=== PATIENT | male | born 1950 | race Caucasian/White ===

== ENCOUNTER 2021-10-31 12:04 | Inpatient (IN) | payer MEDICARE, OTHER ==
[~2021-10-31] VITALS: Ht 185.4 cm; Wt 85.7 kg
[2021-10-31] MEDS ORDERED: RAPAMUNE1 MG PO (12:47)
[2021-10-31] MEDS ORDERED: VITAMIN B-121000 MC1 PO (12:47)
[2021-10-31] MEDS ORDERED: BARACLUDE1 MG PO (12:47)
[2021-10-31] MEDS ORDERED: MONTELUKAST SOD10 MG PO (12:47)
[2021-10-31] MEDS ORDERED: METOPROLOL SUCC50 MG PO (12:47)
[2021-10-31] MEDS ORDERED: ALLEGRA ALLERGY60 MG PO (12:47)
[2021-10-31] MEDS ORDERED: OXYBUTYNIN CHLOR5 MG PO (12:47)
[2021-10-31] MEDS ORDERED: VITAMIN D325 MCG PO (12:47)
[2021-10-31] MEDS ORDERED: FLONASE ALLERG9.9 ML INH (12:47)
[2021-10-31] MEDS ORDERED: MULTIVITAMIN1 EACH PO (12:47)
[2021-10-31] MEDS ORDERED: ONDANSETRON HCL INJ 2MG/ML 2ML 2 MG/ML VIAL IV STA (12:59)
[2021-10-31] MEDS ORDERED: KETOROLAC TROMETHAMINE 30 MG/ML VIAL IV STA (12:59)
[2021-10-31] MEDS ORDERED: SODIUM CHLORIDE 0.9% 1000ML 1,000 ML IV SCH ×2 (13:00→14:30)
[2021-10-31] MEDS ORDERED: Morphine 4mg INJECTION 4 MG/ML INJ IV ONE (13:15)
[2021-10-31] MEDS ORDERED: KETOROLAC TROMETHAMINE 30 MG/ML VIAL ONE (13:20)
[2021-10-31] MEDS ORDERED: Morphine 4mg INJECTION 4 MG/ML INJ ONE (13:21)
[2021-10-31] MEDS ORDERED: PROMETHAZINE 12.5MG/ NACL 0.9% 12.5 MG/50 ML BAG IV ONE (14:45)
[2021-10-31] MEDS ORDERED: PROMETHAZINE HCL (IM) 25 MG/ML VIAL IM ONE (14:51)
[2021-10-31] MEDS ORDERED: CEFTRIAXONE 1 GM VIAL ONE (14:51)
[2021-10-31] MEDS ORDERED: SODIUM CHLORIDE 0.9% 1000ML 1,000 ML ONE (14:51)
[2021-10-31] MEDS ORDERED: Morphine 4mg INJECTION 4 MG/ML INJ IV PRN (15:45)
[2021-10-31 17:42] VITALS: BP 118/67
[2021-10-31 18:05] VITALS: BP 118/67
[2021-10-31 18:21] VITALS: BP 118/67
[2021-10-31] MEDS: SODIUM CHLORIDE 0.9% 1000ML 1,000 ML IV SCH (18:43)
[2021-10-31 20:00] VITALS: BP 112/67
[2021-10-31] MEDS: TAMSULOSIN HCL 0.4 MG CAP PO SCH (20:47)
[2021-10-31 21:16] VITALS: BP 112/67
[2021-11-01] VITALS (7 sets, daily range): BP systolic 115–134; BP diastolic 60–73
[2021-11-01] MEDS ORDERED: DOCUSATE SODIUM 100 MG CAP PO PRN (00:15)
[2021-11-01] MEDS: SODIUM CHLORIDE 0.9% 1000ML 1,000 ML IV SCH ×3 (01:38→16:43)
[2021-11-01 06:28] LABS: BASOPHILS % 0.3 % (0.0-1.0); EOSINOPHILS # (AUTO) 0.2 (0.0-0.4); EOSINOPHILS % 3.6 % (0.0-6.0); HEMATOCRIT 39.1 % (38.2-49.6); HEMOGLOBIN 12.2 g/dL (14.0-18.0); LYMPHOCYTES # (AUTO) 1.3 (1.0-3.2); LYMPHOCYTES % 21.5 % (18.0-39.1); MEAN CORPUSCULAR HEMOGLOBIN 26.8 pg (28-32); MEAN CORPUSCULAR HGB CONC 31.2 g/dL (31-35); MEAN CORPUSCULAR VOLUME 85.7 fL (81-99); MONOCYTES # (AUTO) 0.8 (0.2-0.8); MONOCYTES % 12.5 % (4.4-11.3); NEUTROPHILS # (AUTO) 3.8 (2.1-6.9); NEUTROPHILS % 61.6 % (38.7-80.0); PLATELET COUNT 127 x10e3/uL (140-360); RED BLOOD COUNT 4.56 x10e6/uL (4.3-5.7); RED CELL DISTRIBUTION WIDTH 15.2 % (11.7-14.4)
[2021-11-01 07:15] LABS: ALBUMIN 2.5 g/dL (3.5-5.0); ANION GAP 11.4 mmol/L (8-16); CALCIUM 8.1 mg/dL (8.4-10.2); CREATININE, SERUM 1.52 mg/dL (0.72-1.25); POTASSIUM 4.4 mmol/L (3.5-5.1)
[2021-11-01] MEDS ORDERED: FAMOTIDINE 20 MG TAB PO ONE (07:30)
[2021-11-01] MEDS: SIROLIMUS 1 MG TABLET PO SCH (09:00)
[2021-11-01] MEDS: CEFTRIAXONE 2 GM in SODIUM CHLORIDE 0.9% 100 ML IV SCH (09:54)
[2021-11-01] MEDS: FAMOTIDINE 20 MG TAB PO SCH (16:44)
[2021-11-01] MEDS: ONDANSETRON HCL INJ 2MG/ML 2ML 2 MG/ML VIAL IV PRN ×2 (20:04→23:21)
[2021-11-01] MEDS: TAMSULOSIN HCL 0.4 MG CAP PO SCH (20:07)
[2021-11-01] MEDS: HYDROMORPHONE 1MG/1ML INJ IV PRN (21:07)
[2021-11-01] MEDS ORDERED: ONDANSETRON HCL INJ 2MG/ML 2ML 2 MG/ML VIAL IV PRN (23:45)
[2021-11-02] VITALS (7 sets, daily range): BP systolic 99–127; BP diastolic 50–60
[2021-11-02] MEDS: HYDROMORPHONE 1MG/1ML INJ IV PRN ×5 (00:20→21:10)
[2021-11-02] MEDS: SODIUM CHLORIDE 0.9% 1000ML 1,000 ML IV SCH ×3 (00:28→16:37)
[2021-11-02] MEDS ORDERED: PROMETHAZINE 12.5MG/ NACL 0.9% 12.5 MG/50 ML BAG IV PRN (00:30)
[2021-11-02] MEDS: PROMETHAZINE 12.5MG/ NACL 0.9% 12.5 MG/50 ML BAG IV PRN ×2 (00:52→05:53)
[2021-11-02] MEDS ORDERED: PROMETHAZINE 12.5MG/ NACL 0.9% 50 ML ONE (01:02)
[2021-11-02 06:17] LABS: BASOPHILS % 0.5 % (0.0-1.0); EOSINOPHILS # (AUTO) 0.2 (0.0-0.4); EOSINOPHILS % 3.6 % (0.0-6.0); HEMATOCRIT 34.5 % (38.2-49.6); LYMPHOCYTES # (AUTO) 1.1 (1.0-3.2); LYMPHOCYTES % 27.3 % (18.0-39.1); MEAN CORPUSCULAR HEMOGLOBIN 25.2 pg (28-32); MEAN CORPUSCULAR HGB CONC 31.3 g/dL (31-35); MEAN CORPUSCULAR VOLUME 80.6 fL (81-99); MONOCYTES # (AUTO) 0.6 (0.2-0.8); MONOCYTES % 15.1 % (4.4-11.3); NEUTROPHILS # (AUTO) 2.2 (2.1-6.9); NEUTROPHILS % 53.3 % (38.7-80.0); PLATELET COUNT 163 x10e3/uL (140-360); RED BLOOD COUNT 4.28 x10e6/uL (4.3-5.7); RED CELL DISTRIBUTION WIDTH 16.7 % (11.7-14.4)
[2021-11-02 06:31] LABS: HEMOGLOBIN 10.8 g/dL (14.0-18.0)
[2021-11-02 06:34] LABS: ANION GAP 14.3 mmol/L (8-16); CALCIUM 7.6 mg/dL (8.4-10.2); CREATININE, SERUM 0.61 mg/dL (0.72-1.25); POTASSIUM 3.3 mmol/L (3.5-5.1)
[2021-11-02] MEDS: FAMOTIDINE 20 MG TAB PO SCH ×2 (07:30→16:37)
[2021-11-02] MEDS: CEFTRIAXONE 2 GM in SODIUM CHLORIDE 0.9% 100 ML IV SCH (08:52)
[2021-11-02] MEDS ORDERED: B&O 60MG R/S 60 MG SUPP PR ONE (10:13)
[2021-11-02] MEDS ORDERED: IOPAMIDOL 610MG/1ML 300 MG/ML VIAL IV ONE (10:13)
[2021-11-02] MEDS ORDERED: PHENAZOPYRIDINE HCL 100 MG TAB PO PRN (11:00)
[2021-11-02] MEDS ORDERED: B&O 60MG R/S 60 MG SUPP PR PRN (11:00)
[2021-11-02] MEDS ORDERED: POTASSIUM CHLORIDE 20 MEQ TAB CR PO ONE (12:15)
[2021-11-02] MEDS: MONTELUKAST SODIUM 10 MG TAB PO SCH (12:25)
[2021-11-02] MEDS: SIROLIMUS 1 MG TABLET PO SCH (12:26)
[2021-11-02] MEDS: CYANOCOBALAMIN 1,000 MCG TAB PO SCH (12:26)
[2021-11-02] MEDS: METOPROLOL SUCCINATE 50 MG TAB XL PO SCH (12:26)
[2021-11-02] MEDS ORDERED: PROPOFOL IV EMULSION 10 MG/ML 20 ML VIAL ONE (13:04)
[2021-11-02] MEDS ORDERED: ONDANSETRON HCL INJ 2MG/ML 2ML 2 MG/ML VIAL ONE (13:04)
[2021-11-02] MEDS ORDERED: DEXAMETHASONE SOD PHOS INJ 4 MG/ML SDV ONE (13:04)
[2021-11-02] MEDS ORDERED: LIDOCAINE HCL 2% LOCAL INJ 5 ML SDV VIAL INJ ONE (13:04)
[2021-11-02] MEDS ORDERED: SEVOFLURANE INHAL SOLN 250 ML PEN BTL ONE (13:04)
[2021-11-02] MEDS ORDERED: POVIDONE IODINE 0.05% 0.05 % ML PO ONE (13:04)
[2021-11-02] MEDS ORDERED: MIDAZOLAM HCL 2 MG/2 ML VIAL ONE (13:15)
[2021-11-02] MEDS ORDERED: FENTANYL CITRATE/PF 100MCG/2 ML INJ ONE (13:15)
[2021-11-02] MEDS: TAMSULOSIN HCL 0.4 MG CAP PO SCH (21:03)
[2021-11-03] VITALS: BP 109/46
[2021-11-03 00:57] LABS: % IRON SATURATION 9 % (15-50); IRON 28 ug/dL (65-175); TOTAL IRON BINDING CAPACITY 308 ug/dL (261-478); TRANSFERRIN 220 mg/dL (174-364)
[2021-11-03 04:00] VITALS: BP 116/75
[2021-11-03] MEDS: SODIUM CHLORIDE 0.9% 1000ML 1,000 ML IV SCH ×3 (04:42→15:00)
[2021-11-03 06:25] LABS: BASOPHILS % 0.1 % (0.0-1.0); EOSINOPHILS % 0.6 % (0.0-6.0); HEMATOCRIT 37.2 % (38.2-49.6); HEMOGLOBIN 11.6 g/dL (14.0-18.0); LYMPHOCYTES # (AUTO) 1.3 (1.0-3.2); LYMPHOCYTES % 19.3 % (18.0-39.1); MEAN CORPUSCULAR HEMOGLOBIN 26.4 pg (28-32); MEAN CORPUSCULAR HGB CONC 31.2 g/dL (31-35); MEAN CORPUSCULAR VOLUME 84.5 fL (81-99); MONOCYTES # (AUTO) 0.8 (0.2-0.8); MONOCYTES % 12.1 % (4.4-11.3); NEUTROPHILS # (AUTO) 4.6 (2.1-6.9); NEUTROPHILS % 67.6 % (38.7-80.0); PLATELET COUNT 122 x10e3/uL (140-360); RED CELL DISTRIBUTION WIDTH 15.2 % (11.7-14.4)
[2021-11-03 07:01] LABS: ANION GAP 11.2 mmol/L (8-16); CREATININE, SERUM 1.49 mg/dL (0.72-1.25); POTASSIUM 4.2 mmol/L (3.5-5.1)
[2021-11-03 08:32] VITALS: BP 119/88
[2021-11-03 09:02] VITALS: BP 119/88
[2021-11-03] MEDS: FAMOTIDINE 20 MG TAB PO SCH ×2 (09:06→16:17)
[2021-11-03] MEDS: CYANOCOBALAMIN 1,000 MCG TAB PO SCH (09:06)
[2021-11-03] MEDS: SIROLIMUS 1 MG TABLET PO SCH (09:06)
[2021-11-03] MEDS: MONTELUKAST SODIUM 10 MG TAB PO SCH (09:06)
[2021-11-03] MEDS: METOPROLOL SUCCINATE 50 MG TAB XL PO SCH (09:08)
[2021-11-03] MEDS ORDERED: ONDANSETRON ODT4 MG PO (10:57)
[2021-11-03] MEDS ORDERED: PENICILLIN V P500 MG PO (10:58)
[2021-11-03] MEDS ORDERED: ULTRAM50 MG PO (10:59)
[2021-11-03 11:31] VITALS: BP 115/60
[2021-11-03 15:56] VITALS: BP 129/70
== END 2021-11-03 20:07 | disposition home or self-care (01) | DRG 660 ==
LOC: FSED 12:18 → ERHOLD 15:43 → MED/SURG 17:41
PROVIDERS: ADMIT Internal Medicine; ATTEND Internal Medicine
PROC: BT141ZZ Fluoroscopy of Kidneys, Ureters and Bladder using Low Osmolar Contrast (ICD-10-PCS; 2021-11-02)
PROC: 0TC08ZZ Extirpation of Matter from Right Kidney, Via Natural or Artificial Opening Endoscopic (ICD-10-PCS; principal; 2021-11-02 10:44)
PROC: 0T768DZ Dilation of Right Ureter with Intraluminal Device, Via Natural or Artificial Opening Endoscopic (ICD-10-PCS; 2021-11-02 10:44)
DX: N13.6 Pyonephrosis (principal); Z94.4 Liver transplant status; N17.9 Acute kidney failure, unspecified; E78.5 Hyperlipidemia, unspecified; F32.A Depression, unspecified; N28.1 Cyst of kidney, acquired; I12.9 Hypertensive chronic kidney disease with stage 1 through stage 4 chronic kidney disease, or unspecified chronic kidney disease; N18.9 Chronic kidney disease, unspecified; D64.9 Anemia, unspecified; R31.29 Other microscopic hematuria; Z85.46 Personal history of malignant neoplasm of prostate; E87.6 Hypokalemia; B95.2 Enterococcus as the cause of diseases classified elsewhere; Z85.71 Personal history of Hodgkin lymphoma; Z86.19 Personal history of other infectious and parasitic diseases; Z20.822 Contact with and (suspected) exposure to COVID-19; Q53.10 Unspecified undescended testicle, unilateral
CPT/HCPCS: 36415; 74018; 74176; 74420; 80048; 80053; 80076; 81003; 82607; 82746; 83540; 83970; 84466; 84550; 85025; 85045; 87086; 87186; 88300; 96374; 96375; 99284; C1758; C2617; J0696; J1100; J1170; J1885; J2001; J2250; J2270; J2405; J2550; J3010; J7030; J7050

== ENCOUNTER → 2021-12-14 | Outpatient (CLI) | payer MEDICARE, OTHER ==
[~2021-12-14] MED LIST: ALLEGRA ALLERGY60 MG PO; BARACLUDE1 MG PO; FLONASE ALLERG9.9 ML INH; METOPROLOL SUCC50 MG PO; MONTELUKAST SOD10 MG PO; MULTIVITAMIN PO; MULTIVITAMIN1 EACH PO; ONDANSETRON ODT4 MG PO; OXYBUTYNIN CHLOR5 MG PO; PENICILLIN V P500 MG PO; RAPAMUNE1 MG PO; ULTRAM50 MG PO; VITAMIN B-121000 MC1 PO; VITAMIN D325 MCG PO
[2021-12-14 14:21] LABS: BASOPHILS # (AUTO) 0.1 (0.0-0.1); BASOPHILS % 0.7 % (0.0-1.0); EOSINOPHILS # (AUTO) 0.3 (0.0-0.4); EOSINOPHILS % 3.6 % (0.0-6.0); HEMATOCRIT 46.7 % (38.2-49.6); HEMOGLOBIN 14.8 g/dL (14.0-18.0); LYMPHOCYTES # (AUTO) 2.2 (1.0-3.2); LYMPHOCYTES % 32.3 % (18.0-39.1); MEAN CORPUSCULAR HEMOGLOBIN 26.6 pg (28-32); MEAN CORPUSCULAR HGB CONC 31.7 g/dL (31-35); MONOCYTES # (AUTO) 0.7 (0.2-0.8); MONOCYTES % 10.3 % (4.4-11.3); NEUTROPHILS # (AUTO) 3.6 (2.1-6.9); PLATELET COUNT 174 x10e3/uL (140-360); RED BLOOD COUNT 5.56 x10e6/uL (4.3-5.7); RED CELL DISTRIBUTION WIDTH 15.9 % (11.7-14.4)
[2021-12-14 14:31] LABS: INR 0.96; PROTHROMBIN TIME 13.7 seconds (11.9-14.5)
[2021-12-14 14:32] LABS: PARTIAL THROMBOPLASTIN TIME 24.8 seconds (23.8-35.5)
[2021-12-14 14:40] LABS: ALBUMIN 3.3 g/dL (3.5-5.0); ALBUMIN/GLOBULIN RATIO 0.9 (0.8-2.0); ANION GAP 13.7 mmol/L (8-16); CALCIUM 9.3 mg/dL (8.4-10.2); CREATININE, SERUM 1.58 mg/dL (0.72-1.25); POTASSIUM 4.7 mmol/L (3.5-5.1)
== END ==
LOC: LAB 11:26 → EDSTATUS 12-16 11:30
PROVIDERS: ATTEND Urology
DX: Z01.810 Encounter for preprocedural cardiovascular examination (principal); Z01.812 Encounter for preprocedural laboratory examination; Z01.818 Encounter for other preprocedural examination; N20.0 Calculus of kidney
CPT/HCPCS: 0223U; 36415; 71046; 74018; 80053; 84550; 85025; 85610; 85730; 93005

== ENCOUNTER → 2022-01-13 | Day surgery (SDC) | payer MEDICARE, OTHER ==
[~2022-01-13] MED LIST changes: +ACETAMINOPHEN/CODEINE 300MG - 30MG TAB ONE; +B&O 60MG R/S 60 MG SUPP PR ONE; +CEFTRIAXONE 1 GM VIAL ONE; +DEXAMETHASONE SOD PHOS INJ 4 MG/ML SDV ONE; +FLUCONAZOLE 200 MG/100 ML 100 ML IV ONE; +GENTAMICIN 80MG/NS 100 ML 200 ML IV ONE; +IOPAMIDOL 610MG/1ML 300 MG/ML VIAL IV ONE; +MEPERIDINE HCL INJ 25 MG/ML VIAL ONE; +ONDANSETRON HCL INJ 2MG/ML 2ML 2 MG/ML VIAL ONE; +POVIDONE IODINE 0.05% 0.05 % ML PO ONE; +PROPOFOL IV EMULSION 10 MG/ML 20 ML VIAL ONE; +SEVOFLURANE INHAL SOLN 250 ML PEN BTL ONE; +SODIUM CHLORIDE 0.9% 1000ML 1,000 ML ONE
[2022-01-13 10:45] VITALS: BP 143/79
== END | disposition home or self-care (01) ==
LOC: OR 07:25
PROVIDERS: ATTEND Urology
DX: N20.0 Calculus of kidney (principal); N20.1 Calculus of ureter; Z46.6 Encounter for fitting and adjustment of urinary device; N39.0 Urinary tract infection, site not specified; N28.89 Other specified disorders of kidney and ureter; I12.9 Hypertensive chronic kidney disease with stage 1 through stage 4 chronic kidney disease, or unspecified chronic kidney disease; N18.9 Chronic kidney disease, unspecified; N32.89 Other specified disorders of bladder; R32 Unspecified urinary incontinence; D64.9 Anemia, unspecified; G47.33 Obstructive sleep apnea (adult) (pediatric); I10 Essential (primary) hypertension; E78.5 Hyperlipidemia, unspecified; K21.9 Gastro-esophageal reflux disease without esophagitis; K75.9 Inflammatory liver disease, unspecified; Z94.4 Liver transplant status; Z01.818 Encounter for other preprocedural examination; Z79.899 Other long term (current) drug therapy; Z86.73 Personal history of transient ischemic attack (TIA), and cerebral infarction without residual deficits; Z86.16 Personal history of COVID-19
CPT/HCPCS: 50590; 52351; 74018; 87086; 87186; C1758; C1769; J0696; J1100; J1450; J1580; J2175; J2405; J2704; J7030; Q9967